=== PATIENT | female | born 1965 | race American Indian/Alaskan Native ===

== ENCOUNTER 2016-06-22 08:41 | Outpatient (CLI) | payer MEDICARE ==
[2016-06-22] MEDS ORDERED: NACL ONE (09:05)
--- NOTE | 2016-06-22 10:21 | Cat Scan Report ---
CT head without contrast: Comparison is made to a prior study of July 2009. Transverse images through the brain demonstrates normal cerebral anatomy. No focal or generalized lesion identified. No extracerebral collection. No hemorrhage. The partially visualized maxillary sinuses demonstrate moderate mucoperiosteal thickening as well as some thickening in multiple ethmoid air cells and left sphenoid sinus. The bones are unremarkable. The intracranial findings are unchanged from prior study however the sinus inflammation is new. Impressions: Normal intracranial scan. Sinus inflammatory changes occurring since 2009.
== END 2016-06-22 08:42 | disposition home or self-care (01) ==
LOC: CT 08:41
PROVIDERS: ATTEND Internal Medicine
DX: R51 Headache (principal); Z85.038 Personal history of other malignant neoplasm of large intestine; Z85.828 Personal history of other malignant neoplasm of skin
CPT/HCPCS: 70470; Q9967

== ENCOUNTER 2017-11-08 11:49 | Emergency (ER) | payer MEDICARE ==
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
[2017-11-08] MEDS ORDERED: MOTRIN PO ONE (13:25)
[2017-11-08] MEDS ORDERED: MOTRIN ONE (15:32)
[2017-11-08 20:12] VITALS: BP 122/76
--- NOTE | 2017-11-09 11:20 | XRay Report ---
RIGHT KNEE RADIOGRAPHS INDICATION: Right knee pain. COMPARISON: None similar. FINDINGS: AP, oblique and lateral right knee radiographs demonstrate mild medial compartment narrowing and marginal osteophytes. Intact overall articulation. Moderate suprapatellar joint effusion. Mild lower patellar articular pole spurring. CONCLUSION: Right knee degenerative changes, as described above. Please correlate. Thank you for the opportunity to participate in this patient's care.
--- NOTE | 2017-11-09 11:20 | XRay Report ---
LUMBAR SPINE RADIOGRAPHS INDICATION: Lower back pain. COMPARISON: 07/29/2009 lumbar spine MRI. FINDINGS: AP and lateral lumbar spine radiographs again demonstrate preserved vertebral body stature. Approximately 2 mm anterolisthesis of L4-L5 may now be noted with mild degenerative spurring. Slight L4-5 disc narrowing also possible. Mid to lower lumbar facet arthropathy also noted. Nonobstructive bowel gas pattern. Intact SI joints. Numerous pelvic phleboliths. CONCLUSION: Mid to lower lumbar spine degenerative changes, as described. Thank you for the opportunity to participate in this patient's care.
== END 2017-11-08 16:38 | disposition home or self-care (01) ==
LOC: ED 11:49
DX: S80.01XA Contusion of right knee, initial encounter (principal); M54.5 Low back pain; K21.9 Gastro-esophageal reflux disease without esophagitis; F31.9 Bipolar disorder, unspecified; Z90.710 Acquired absence of both cervix and uterus; Z86.711 Personal history of pulmonary embolism; Z88.5 Allergy status to narcotic agent; Z88.8 Allergy status to other drugs, medicaments and biological substances; V89.2XXA Person injured in unspecified motor-vehicle accident, traffic, initial encounter; Y93.89 Activity, other specified; Y92.89 Other specified places as the place of occurrence of the external cause; Y99.8 Other external cause status
CPT/HCPCS: 72100

== ENCOUNTER 2018-01-21 08:23 | Emergency (ER) | payer OTHER, MEDICARE ==
[2018-01-21 08:41] VITALS: BP 125/81
[2018-01-21] MEDS ORDERED: NORCO 5/325 PO ONE (09:35)
[2018-01-21] MEDS ORDERED: ZOFRAN ODT PO ONE (09:36)
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
== END 2018-01-21 09:50 | disposition home or self-care (01) ==
LOC: ED 08:23
DX: M54.5 Low back pain (principal); K21.9 Gastro-esophageal reflux disease without esophagitis; Z90.710 Acquired absence of both cervix and uterus; Z88.6 Allergy status to analgesic agent; Z88.8 Allergy status to other drugs, medicaments and biological substances; V89.2XXA Person injured in unspecified motor-vehicle accident, traffic, initial encounter; Y93.89 Activity, other specified; Y92.481 Parking lot as the place of occurrence of the external cause; Y99.8 Other external cause status
CPT/HCPCS: 99282; Q0162

== ENCOUNTER 2021-08-19 13:58 | Outpatient (CLI) | payer OTHER, MEDICARE ==
--- NOTE | 2021-08-19 17:44 | Electrocardiograph Report ---
[facility] Test Date: 2021-08-19 Test Time: 14:24:39 Pat Name: DADA CHIN Department: Room: Gender: F District Superintendent: CHERYL : 1965 Requested By: MARCIO CHAPMAN Order Number: [id number] Reading MD: Aisha Wilson Measurements Intervals [place] Rate: 69 P: 65 [place]: 214 QRS: 12 QRSD: 86 T: 33 QT: 430 QTc: 459 Interpretive Statements Sinus rhythm Prolonged [place] interval No previous ECG available for comparison Electronically Signed On 08-19-2021 17:44:23 EST by Aisha Wilson
== END 2021-08-19 13:59 | disposition home or self-care (01) ==
LOC: CARD 13:58
PROVIDERS: ATTEND Internal Medicine
DX: R94.31 Abnormal electrocardiogram [ECG] [EKG] (principal)
CPT/HCPCS: 93005; 93010